=== PATIENT | male | born 1985 | race Two or more races ===

== ENCOUNTER 2016-11-21 12:36 | Emergency (ER) | payer OTHER ==
[~2016-11-21] VITALS: Ht 182.9 cm; Wt 74.8 kg
--- NOTE | 2016-11-21 12:45 | NUR ---
PATIENT PRESENTS TO ER C/O LEFT HAND 4th DIGIT LACERATION @ 1135AM TODAY S/P TRIPPING. PATIENT IS A/OX4. BREATHING EVEN AND UNLABORED. NO SOB. VITALS STABLE. WOUND WRAPPED, NO EXCESSIVE BLEEDING. SAFETY AND COMFORT MEASURES IN PLACE. AWAITING MD ORDERS.
[2016-11-21] MEDS ORDERED: TDAP [DIPH/PERTUSSIS/TET] 0.5 ML VIAL IM ONE ×2 (13:00→13:19)
[2016-11-21] MEDS ORDERED: IBUPROFEN 400 MG TABLET PO ONE (13:00)
[2016-11-21] MEDS ORDERED: LIDOCAINE /MPF 1% VIAL 5 ML VIAL ONE (13:12)
[2016-11-21] MEDS ORDERED: IBUPROFEN 400 MG TABLET ONE (13:19)
--- NOTE | 2016-11-21 13:24 | NUR ---
PATIENT MEDICATED PER MD ORDERS .
--- NOTE | 2016-11-21 14:25 | NUR ---
Patient discharged to home in stable condition. Written and verbal after care instructions given. Patient verbalizes understanding of instruction.
[2016-11-21 14:38] VITALS: BP 138/76
== END 2016-11-21 14:25 | disposition home or self-care (01) ==
LOC: ER 12:39
DX: S61.215A Laceration without foreign body of left ring finger without damage to nail, initial encounter (principal); J45.909 Unspecified asthma, uncomplicated; Z23 Encounter for immunization; Z88.0 Allergy status to penicillin; Z88.1 Allergy status to other antibiotic agents; W01.0XXA Fall on same level from slipping, tripping and stumbling without subsequent striking against object, initial encounter; Y93.89 Activity, other specified; Y92.090 Kitchen in other non-institutional residence as the place of occurrence of the external cause; Y99.8 Other external cause status
CPT/HCPCS: 12001; 73140; 90471; 90715; 99284; A4606; A6402; J3490; Z7610

== ENCOUNTER 2016-11-25 09:31 | Emergency (ER) | payer OTHER ==
[~2016-11-25] VITALS: Ht 182.9 cm; Wt 74.8 kg
[2016-11-25 09:49] VITALS: BP 122/71
== END 2016-11-25 10:18 | disposition home or self-care (01) ==
LOC: ER 09:31
DX: S61.215D Laceration without foreign body of left ring finger without damage to nail, subsequent encounter (principal); J45.909 Unspecified asthma, uncomplicated; Z88.1 Allergy status to other antibiotic agents; Z88.8 Allergy status to other drugs, medicaments and biological substances
CPT/HCPCS: 99281; A4606; Z7610; Z7502